=== PATIENT | female | born 1955 | race Caucasian/White ===

== ENCOUNTER 2016-09-05 16:15 | Emergency (ER) | payer OTHER ==
[2016-09-05 16:27] VITALS: TEMP 97.5
[2016-09-05 17:09] LABS: COLOR YELLOW; LEUKOCYTE ESTERASE,URINE TRACE (NEGATIVE); NITRITE,URINE NEGATIVE (NEGATIVE)
[2016-09-05 17:18] LABS: MUCUS TRACE /lpf (NONE-1+)
--- NOTE | 2016-09-05 17:34 | EDPHY ---
H & P Time Seen by Provider: 09/05/16 16:48 HPI/ROS: This is a 60 year female presenting to emergency department complaining of some urinary discomfort onset today, also reports she would like a urine drug screen for her ambulance officer. Patient she states she infrequently gets UTIs, at this time [facility] just wanted to make sure she did have UTI. Denies any fever, chills, nausea or vomiting, she does have chronic back pain is wearing a lidocaine patch at this time. Denies any other complaints REVIEW OF SYSTEMS: Constitutional: No fever chills Respiratory: No cough Cardiac:No chest pain Gastrointestinal: No abdominal pain no nausea vomiting Genitourinary: Urinary discomfort no dysuria or blood Musculoskeletal: Chronic lower back pain, abrasion to left ankle Skin: No rash Neurological: No headache or dizziness Smoking Status: Former smoker Physical Exam: CONSTITUTIONAL: patient appeared well nourished, non-ill appearing and normally developed. No acute distress. Vital signs as documented. HEENT: NCAT. NECK: Supple, FROM without pain RESP: Non-labored resp effort GI: Abd soft NTTP, no mass NEURO: AAOx3 EXTREMITIES: No CVA tenderness on palpate. Small abrasion noted to the anterior aspect of left ankle no cellulitis. FROM without pain or difficulty. SKIN: Warm and dry, no rash or lesions noted PSYCH: Normal affect, calm, no distress Constitutional: Initial Vital Signs Temperature (C) 36.4 C 09/05/16 16:20 Heart Rate 78 09/05/16 16:20 Respiratory Rate 18 09/05/16 16:20 Blood Pressure 109/77 09/05/16 16:20 O2 Sat (%) 97 09/05/16 16:20 O2 Delivery Mode Room Air Allergies/Adverse Reactions: acetaminophen [From Tylenol] Allergy (Verified 11/04/13 23:25) Other-Enter Comments promethazine HCl [From Phenergan] Allergy (Verified 11/04/13 23:25) Other-Enter Comments Home Medications: Medication Instructions Recorded "10 Muscle Relaxers" 11/04/13 Adderall 10 MG (RX) 11/04/13 Cholesterol Medicine 11/04/13 Klonopin 11/04/13 Neurontin 11/04/13 Synthroid 100 mcg (RX) 11/04/13 Zoloft 100mg (RX) 11/04/13 traZODONE 100MG (RX) 11/04/13 Cyclobenzaprine [Flexeril 10 MG 10 mg PO TID PRN #15 tab 11/05/13 (RX)] Oxycodone HCl 5 mg PO Q4-6PRN PRN #8 capsule 11/05/13 Methocarbamol [Robaxin 500 mg (RX)] 500 - 1,000 mg PO QID PRN #15 tab 11/13/13 Nitrofurantoin Monohyd/M-Cryst 100 mg PO BID #10 cap 11/13/13 [Macrobid] Phenazopyridine HCl [Pyridium] 200 mg PO Q8 PRN #10 tab 11/13/13 Medical Decision Making ED Course/Re-evaluation: Discussed plan of care: UA sent discussed results with patient, no antibiotics needed. Discharge home---> stable, discussed discharge instructions Differential Diagnosis: Differential diagnosis considered but not limited to UTI, pyelonephritis and cellulitis - Data Points Laboratory Results: 09/05/16 16:40 Urine Color YELLOW Urine Appearance CLEAR Urine pH 5.0 (5.0-7.5) Ur Specific Dexter 1.026 (1.002-1.030) Urine Protein NEGATIVE (NEGATIVE) Urine Ketones NEGATIVE (NEGATIVE) Urine Blood NEGATIVE (NEGATIVE) Urine Nitrate NEGATIVE (NEGATIVE) Urine Bilirubin NEGATIVE (NEGATIVE) Urine Urobilinogen NEGATIVE EU EU (0.2-1.0) Ur Leukocyte Esterase TRACE H (NEGATIVE) Urine RBC 1-3 /hpf /hpf (0-3) Urine WBC 1-3 /hpf /hpf (0-3) Ur Epithelial Cells NONE SEEN /lpf /lpf (NONE-1+) Urine Mucus TRACE /lpf /lpf (NONE-1+) Urine Glucose NEGATIVE (NEGATIVE) Departure - Departure Disposition: Home, Routine, Self-Care Clinical Impression: Urinary symptom or sign Condition: Good Instructions: Interstitial Cystitis (ED) Additional Instructions: 1. Increase fluid intake, you can also take cranberry pills or cranberry juice 2. you can also take ibuprofen and Tylenol as needed 3. Follow up with your ambulance officer to find out where you have to go for a urine drug screen 4. Keep a Band-Aid on your left ankle where your the ankle brace it is rubbing his skin 5. you can also use [id number] lidocaine patches for chronic lower back pain Referrals: NONE *PRIMARY CARE P,. [Primary Care Provider] - As per Instructions [facility],. [Clinic] - As per Instructions
[2016-09-05 17:50] VITALS: BP 117/72; PULSE 89; RESP 16; O2SAT 96
== END 2016-09-05 17:49 | disposition home or self-care (01) ==
DX: R39.198 Other difficulties with micturition (principal); Z87.891 Personal history of nicotine dependence